=== PATIENT | female | born 1945 | race Caucasian/White ===

== ENCOUNTER 2019-08-21 11:00 | Inpatient (IN) | payer OTHER, MEDICARE ==
[2019-08-21] VITALS (7 sets, daily range): BP systolic 137–171; BP diastolic 72–89
[~2019-08-21] VITALS: Ht 154.9 cm; Wt 82.1 kg
[~2019-08-21 11:00] MED LIST: GARLIC OIL1 EAC1 PO; IBUPROFEN 200200 M1 PO; LEVOTHROID100 MC1 PO; MICARDIS40 MG PO; MULTIVITAMINS PO
[2019-08-21 12:08] LABS: ABSOLUTE NEUTROPHILS 5.1 thou/uL (1.4-8.2); BASOPHILS 0.9 % (0.0-2.0); EOSINOPHILS 1.2 % (0.0-3.0); HEMATOCRIT 41.1 % (37.0-47.0); HEMOGLOBIN 13.3 gm/dL (12.0-15.0); LYMPHOCYTES 19.9 % (24.0-44.0); MCH 30.3 pg (26.0-34.0); MCHC 32.4 g/dL (28.0-37.0); MCV 93.4 fL (80.0-100.0); PLATELET COUNT 228 thou/uL (150-400); RBC 4.41 mil/uL (4.20-5.00); WBC 7.1 thou/uL (4.0-11.0)
[2019-08-21] MEDS ORDERED: COZAAR 25 MG TA25 M2 PO (12:10)
[2019-08-21 12:16] LABS: ANION GAP 7 mmol/L (7-16); BUN 19 mg/dL (7-18); CALCIUM 9.6 mg/dL (8.5-10.1); CHLORIDE 106 mmol/L (98-107); CO2 29 mmol/L (21-32); CREATININE 0.7 mg/dL (0.6-1.0); GLUCOSE 82 mg/dL (74-106); POTASSIUM 3.9 mmol/L (3.5-5.1); SODIUM 142 mmol/L (136-145)
[2019-08-21 12:26] LABS: ALBUMIN 3.5 g/dL (3.4-5.0); SGOT 20 U/L (15-37); SGPT 25 U/L (30-65); TOTAL BILIRUBIN 1.1 mg/dL (<0.1-1.0); TOTAL PROTEIN 7.4 g/dL (6.4-8.2); TROPONIN-I <0.06 ng/mL (<0.06)
--- NOTE | 2019-08-21 17:11 | EKG ---
[place] [address] [facility] [place] [address] ELECTROCARDIOGRAM REPORT Name: INGRIDJOHNNY Liana Room #: 359-P ADM IN M.R.#: [id number] Admission: 08/21/19 Attend Phys: James Figueroa MD Discharge: Date of : 43 Report #: [id number] THIS REPORT FOR: //name// [facility] ED Test Date: 2019-08-21 Test Time: 11:03:11 Pat Name: JOHNNY QUINTERO Department: Room: [facility] Gender: F Equipment Maintenance Technician: KACIE : 1945 Requested By: Missael Jay Order Number: [id number] MD: Raghavendra Frost Measurements Intervals [place] Rate: 61 P: 59 WI: 150 QRS: -4 QRSD: 88 T: 14 QT: 421 QTc: 424 Interpretive Statements Sinus rhythm Ventricular premature complex Compared to ECG 02/16/2011 07:01:52 Ventricular premature complex(es) now present Electronically Signed On 08-21-2019 17:10:54 GARDEN WORKER by Raghavendra Frost [email or web address] <ELECTRONICALLY SIGNED> By: Raghavendra Frost MD, [facility] 08/21/19 171 02 02 Raghavendra Frost MD, [facility] /EPI
[2019-08-21] MEDS ORDERED: ADVIL100 M2 PO (17:31)
[2019-08-21 18:14] LABS: CHOLESTEROL 223 mg/dL (<200); HDL CHOLESTEROL 64 mg/dL (>40); LDL CHOLESTEROL 147 mg/dL (<100); TC:HDL 3.5 Ratio (Not establshd); TRIGLYCERIDE 60 mg/dL (<150); VLDL 12 mg/dL (<40)
--- NOTE | 2019-08-21 20:13 | NUR ---
PT. ARRIVED AT FLOOR AROUND 1500; PT. AOX4; ON BED; NO C/O PAIN; EDUCATED ABOUT CALLING BEFORE GETTING UP FROM BED IF FEELING DIZZINESS; TAKING SOME TIME WHEN STANDING UP; ST. UNDERSTANDING; NO C/O CP THROUGH THE AFTERNOON; SR ON THE MONITOR; ADMISSION PERFORMED; ASSESSMENT CHARGED; FOLLOWING POC; PASSED ON REPORT;
[2019-08-22] VITALS (8 sets, daily range): BP systolic 116–146; BP diastolic 55–75
[2019-08-22 03:06] LABS: GLYCOHEMOGLOBIN (HGB A1C) 5.4 % (4.8-5.6)
--- NOTE | 2019-08-22 08:04 | NUR ---
ASSUMED CARE AT 1900, ASSESSMENT COMPLETED. PT DENIED ANY CHEST PAIN/TIGHTNESS, DIZZINESS, OR SOB OVERNIGHT. TAKEN FOR CTA AT 2200. NPO AT MIDNIGHT FOR STRESS TEST TODAY. UP AD VICK, CALLED APPROPRIATELY FOR NEEDS. NO OTHER CONCERNS, SHIFT REPORT GIVEN AT 0700.
--- NOTE | 2019-08-22 09:27 | EXE ---
[facility] [address] [employer] [place] [address] STRESS ECHOCARDIOGRAM Name: JOHNNY QUINTERO Room #: 359-P ADM IN .R.#: [id number] Admission: 08/21/19 Attend Phys: Liana Lares Discharge: Date of : 43 Report #: [id number] THIS REPORT FOR: //name// APPROVED REPORT Study performed: 08/22/2019 08:02:49 Exam: Stress Echocardiogram Indication: Chest pain , Dizziness Patient Location: Echo lab Stress Nurse: Nita Moseley RN Room #: 359 Status: routine Ht: 5 ft 1 in HR: 62 bpm BP: 137/72 mmHg Rhythm: NSR Medical History Allergies: Statins Cardiac Risk Factors: HTN Procedure The patient underwent an Exercise Stress Test using the Ziyad Protocol. Blood pressure, heart rate, and EKG were monitored. An Echocardiogram was performed by cutter grind tool technician in four stages in quad fashion. At peak stress, four selected images were obtained and placed side by side with resting images for comparison. Stress Test Details Stress Test: Exercise stress testing was performed using a Ziyad protocol. HR Resting HR: 62 bpm Max Heart Rate (APMHR): 145 bpm Max HR Achieved: 136 bpm Target HR (85% APMHR): 123 bpm % of APMHR: 93 Recovery HR: 67 bpm HR response to stress: Normal HR response to stress BP Resting BP: 137/72 mmHg Max BP: 170/90 mmHg Recovery BP: 134/66 mmHg BP response to stress: Normal blood pressure response to stress. [facility] [address] [place] [address] STRESS ECHOCARDIOGRAM Name: PABLOKAVEHJOHNNY Room #: 359-P [facility].#: [id number] Admission: 08/21/19 Attend Phys: Liana Lares Discharge: Date of : 43 Report #: [id number] Resting ECG: Sinus Rhythm Stress ECG: Sinus Tachycardia Recovery ECG: Sinus Bradycardia Clinical Reason for Termination: Maximal effort Stress Symptoms: Fatigue Exercise duration: 7 min 9 sec Highest Stage Achieved: Stage 3: 3.4 mph at 14% grade. Exercise capacity: 9.5 METs Stress ECG Conclusion 1. Subjectively negative for ischemia 2. Elective cartographic a negative for ischemia 3. Satisfactory functional capacity Pre-Stress Echo The resting Echocardiogram showed normal left ventricular contractility with an estimated Ejection Fraction of about 55-60%. The resting echocardiogram demonstrated normal wall motion in all wall segments. Post-Stress Echo The stress Echocardiogram showed normal left ventricular contractility with an estimated Ejection Fraction of about 65-70%. Compared to rest, there were no stress-induced wall motion abnormalities. Clinical No clinical or ECG evidence for ischemia. Conclusion Clinical Response: Non-ischemic Exercise Capacity: satisfactory Stress ECG Response: Non-ischemic Stress Echo Images: Non-ischemic 1. Low risk study Other Information Study Quality: Fair Technically limited study due to lung artifact. [facility] [address] [place] [address] STRESS ECHOCARDIOGRAM Name: JOHNNY QUINTERO Room #: 359-P ADM IN M.R.#: [id number] Admission: 08/21/19 Attend Phys: Liana Lares Discharge: Date of : 43 Report #: [id number] <Conclusion> 1. Low risk study <ELECTRONICALLY SIGNED> By: Chico Armando MD 08/22/19926 6 6 Chico Armando MD /INF
--- NOTE | 2019-08-22 13:49 | NUR ---
INITIAL ASSESSMENT/DISCHARGE NOTE: SW reviewed chart and spoke with nursing and attending physician. Pt was admitted from home due to chest pain. Pt had stress echo this morning, which was negative. Pt may discharge home later today. SW met with pt at bedside. Introduced role of SW. Pt is alert/orientated x 4. Pt reports she lives at home with her , who is in good health. Prior to admission, pt was independent with ADLs. No use of DME. No hx of services or post-acute placement. Pt's PCP is Dr. Rosalio Ziegler. Plan is for pt to discharge home when medically stable. Pt's family to provide transportation home. No SW needs identified at this time, but is available to assist should needs arise.
[2019-08-22] MEDS ORDERED: MECLIZINE HCL25 MG PO (15:24)
[2019-08-22] MEDS ORDERED: ASPIR 8181 MG PO (15:24)
--- NOTE | 2019-08-22 16:45 | NUR ---
Assumed care approx. 0700 this AM. Stress echo completed this AM. Pt completed vestibular therapy with PT this afternoon. Meclizine given x1 this afternoon per Dr. Figueroa order for dizziness; pt up to walk a hour later around unit with no complaints of dizziness at that time. Pt waiting to do US of carotids with discharge pending upon test results and if cardiology approves of discharge. Will continue to monitor. Pt progressing toward plan of care goals.
[2019-08-23 05:18] VITALS: BP 130/67
--- NOTE | 2019-08-23 06:26 | NUR ---
ASSUMED CARE AT 1900, ASSESSMENT COMPLETED. PT DENIED ANY CHEST PAIN OR SOB OVERNIGHT. THIS AM, PT REPORTED ONE BRIEF INSTANCE OF DIZZINESS DURING THE NIGHT ABOUT 0200, BUT DID NOT CALL OUT AT THE TIME; STATED IT PASSED FAIRLY QUICKLY. NO OTHER CONCERNS, LIKELY D/C HOME TODAY PENDING CARDIOLOGY CLEARANCE.
[2019-08-23 07:16] VITALS: BP 139/79
[2019-08-23] MEDS ORDERED: METOPROLOL SUCC25 M1 PO (08:43)
[2019-08-23 11:07] VITALS: BP 132/70; BP 139/79
[2019-08-23 12:59] VITALS: BP 139/79
--- NOTE | 2019-08-23 13:00 | NUR ---
Assumed care approx. 0700 this AM. Cardiology doc, Dr. Price, stated this AM that the 8 beat run of VTACH noted from last night is in fact artifact, and NOT truly VTACH. Patient cleared by cardio for discharge. Discharge orders obtained. Scripts sent to pharmacy by provider. IV and tele dc'd. Pt recieved discharge packet. Medicare papers signed. Pt taken out by wheelchair with spray unit feeder at 1259 this shift. Pt leaving with .
== END 2019-08-23 12:59 | disposition home or self-care (01) | DRG 149 ==
LOC: ER 11:00 → EROBS 13:49 → 3W 13:49
PROVIDERS: Emergency Medicine; Nurse Practitioner Adult Health; ADMIT Hospitalist
DX: H81.90 Unspecified disorder of vestibular function, unspecified ear (principal); I47.1 Supraventricular tachycardia; E03.9 Hypothyroidism, unspecified; K08.109 Complete loss of teeth, unspecified cause, unspecified class; I10 Essential (primary) hypertension; E78.5 Hyperlipidemia, unspecified; E78.00 Pure hypercholesterolemia, unspecified; Z82.3 Family history of stroke; Z79.899 Other long term (current) drug therapy; Z88.8 Allergy status to other drugs, medicaments and biological substances; Z90.89 Acquired absence of other organs
CPT/HCPCS: 10779; 10879